=== PATIENT | male | born 1940 | race Caucasian/White ===

== ENCOUNTER 2020-02-28 03:15 | Emergency (ER) | payer SELFPAY ==
[~2020-02-28] VITALS: Ht 149.9 cm; Wt 72.7 kg
[~2020-02-28 03:15] MED LIST: [UNRECOGNIZED DRUG - REMARK]
[2020-02-28] MEDS ORDERED: METO-408 PO (03:22)
[2020-02-28] MEDS ORDERED: METO-391 PO (03:22)
[2020-02-28] MEDS ORDERED: CloNIDine HCL 0.2 MG TABLET PO ONE (04:00)
[2020-02-28 04:36] LABS: BASOPHILS % (AUTO) 0.6 % (0.0-2.0); EOSINOPHILS % (AUTO) 2.7 % (1.0-6.0); HEMATOCRIT 40.8 % (41-53); HEMOGLOBIN 13.7 g/dL (13.5-17.5); LYMPHOCYTES # (AUTO) 1.4 K/uL (1.0-4.8); LYMPHOCYTES % (AUTO) 23.9 % (22.0-44.0); MEAN CORPUSCULAR HEMOGLOBIN 30.6 pg (26.0-34.0); MEAN CORPUSCULAR HGB CONC 33.7 G/dL (31.0-37.0); MEAN CORPUSCULAR VOLUME 91 fL (80-100); MONOCYTES # (AUTO) 0.6 K/uL (0.1-1.0); MONOCYTES % (AUTO) 9.7 % (2.0-9.0); NEUTROPHILS # (AUTO) 3.6 K/uL (1.8-7.7); NEUTROPHILS % (AUTO) 63.1 % (40.0-70.0); PLATELET COUNT (AUTO) 159 K/uL (150-450); RED BLOOD CELL COUNT(AUTO) 4.49 MIL/uL (4.50-5.90)
[2020-02-28 05:00] LABS: ANION GAP 9 mmol/L (8-16); CALCIUM, TOTAL 8.3 mg/dL (8.8-10.5); CARBON DIOXIDE 28 mmol/L (22-29); CHLORIDE 103 mmol/L (98-107); CREATININE 1.02 mg/dL (0.60-1.30); GLUCOSE,RANDOM 107 mg/dL (70-110); POTASSIUM 4.5 mmol/L (3.5-5.1); SODIUM SERUM 140 mmol/L (136-145); UREA NITROGEN, BLOOD 15 mg/dL (7-18)
[2020-02-28 05:01] LABS: GLOMERULAR FILTR. RATE CALC > 60 mL/min (>60)
[2020-02-28 05:06] LABS: ALANINE AMINOTRANSFERASE 25 U/L (12-78); ALBUMIN 3.6 g/dL (3.4-5.0); ALKALINE PHOSPHATASE 90 U/L (46-116); ASPARTATE AMINOTRANSFERASE 26 U/L (15-37); BILIRUBIN,TOTAL 0.9 mg/dL (0.1-1.0); TOTAL PROTEIN, SERUM 8.1 g/dL (6.4-8.2)
[2020-02-28 06:09] LABS: B-TYPE NATRIURETIC PEPTIDE 40 pg/mL (0-100)
[2020-02-28 10:16] VITALS: BP 153/84
== END 2020-02-28 10:27 | disposition home or self-care (01) ==
LOC: EMS 03:18
DX: T44.7X1A Poisoning by beta-adrenoreceptor antagonists, accidental (unintentional), initial encounter (principal); I10 Essential (primary) hypertension; Y92.89 Other specified places as the place of occurrence of the external cause
CPT/HCPCS: 83735; 93005